=== PATIENT | male | born 1945 | race Caucasian/White ===

== ENCOUNTER 2020-01-01 10:19 | Outpatient (CLI) | payer MEDICARE, SELFPAY ==
--- NOTE | ~2020-01-01 | XR_ITS ---
EXAMINATION: XR wrist LT min 3V DATE: 01/01/2020 10:49 INDICATION: Left wrist pain. TECHNIQUE: 4 views of left wrist were obtained. COMPARISON: None. FINDINGS: Bone alignment is normal. No fracture. Joint spaces are well maintained. IMPRESSION: 1. Normal left wrist. Reviewed, dictated and finalized at location A. IMPRESSION: 1. Normal left wrist.
[2020-01-01 10:32] LABS: Hematocrit 46.9 % (37.0-46.0); Hemoglobin 16.3 g/dL (12.4-15.3); Mean Corpuscular HGB Conc 34.8 g/dL (32.0-36.0); Mean Corpuscular Hemoglobin 32.3 pg (27.0-31.0); Mean Corpuscular Volume 92.9 fL (78.0-102.0); Platelet Count Result 290 K/mm3 (150-420); Red Blood Count 5.05 M/mm3 (4.70-6.10); Red Cell Distribution Width 12.7 % (11.6-14.4); White Blood Count 11.8 K/mm3 (4.8-10.8)
[2020-01-01 11:02] LABS: Alanine Aminotransferase 36 U/L (16-63); Alkaline Phosphatase 68 U/L (46-116); Anion Gap 10.5 mmol/L (7-16); Aspartate Amino Transferase 25 U/L (15-37); Bilirubin,Total 0.3 mg/dL (0.00-1.00); Blood Urea Nitrogen 25 mg/dL (7-18); Calcium 9.2 mg/dL (8.5-10.1); Carbon Dioxide 30 mmol/L (21-32); Chloride 102 mmol/L (98-108); Cholesterol 212 mg/dL (0-200); Estimated Glomerular Filt Rate > 60; Glucose 93 mg/dL (70-99); HDL Direct 55 mg/dL (40-60); LDL Cholesterol Calculated 117 mg/dL (<130); Osmolality Calculated 290 mOsm/kg (285-295); Potassium 4.5 mmol/L (3.5-5.1); Sodium 138 mmol/L (136-145); Triglycerides 200 mg/dL (0-150)
== END 2020-01-01 10:20 | disposition home or self-care (01) ==
PROVIDERS: PCP Family Medicine; Visit Provider Family Medicine
DX: I10 Essential (primary) hypertension (principal); I25.10 Atherosclerotic heart disease of native coronary artery without angina pectoris; M25.539 Pain in unspecified wrist
CPT/HCPCS: 36415; 73110; 80053; 80061; 85027

== ENCOUNTER 2020-12-06 08:43 | Outpatient (CLI) | payer MEDICARE, SELFPAY ==
[2020-12-06 09:01] LABS: Hematocrit 45.4 % (37.0-46.0); Hemoglobin 15.1 g/dL (12.4-15.3); Mean Corpuscular HGB Conc 33.3 g/dL (32.0-36.0); Mean Corpuscular Volume 93.2 fL (78.0-102.0); Mean Platelet Volume 9.8 fl (8.7-11.0); Platelet Count Result 305 K/mm3 (150-420); Red Blood Count 4.87 M/mm3 (4.70-6.10); Red Cell Distribution Width 12.6 % (11.6-14.4); White Blood Count 11.9 K/mm3 (4.8-10.8)
[2020-12-06 09:59] LABS: Alanine Aminotransferase 36 U/L (16-63); Alkaline Phosphatase 81 U/L (46-116); Anion Gap 8 mmol/L (8-16); Aspartate Amino Transferase 25 U/L (15-37); Bilirubin,Total 0.4 mg/dL (0.00-1.00); Blood Urea Nitrogen 21 mg/dL (7-18); Calcium 9.1 mg/dL (8.5-10.1); Carbon Dioxide 28 mmol/L (21-32); Chloride 103 mmol/L (98-108); Cholesterol 157 mg/dL (0-200); Estimated Glomerular Filt Rate > 60; Glucose 84 mg/dL (70-99); HDL Direct 53 mg/dL (40-60); LDL Cholesterol Calculated 87 mg/dL (<130); Osmolality Calculated 290 mOsm/kg (285-295); Potassium 4.6 mmol/L (3.5-5.1); Sodium 139 mmol/L (136-145); Total Protein 7.1 g/dL (6.4-8.2); Triglycerides 85 mg/dL (0-150)
== END 2020-12-06 08:44 | disposition home or self-care (01) ==
PROVIDERS: PCP Family Medicine; Visit Provider Family Medicine
DX: I25.10 Atherosclerotic heart disease of native coronary artery without angina pectoris (principal); Z87.891 Personal history of nicotine dependence; J44.9 Chronic obstructive pulmonary disease, unspecified
CPT/HCPCS: 36415; 80053; 80061; 85027

== ENCOUNTER 2020-12-12 07:43 | Outpatient (CLI) | payer MEDICARE, SELFPAY ==
--- NOTE | ~2020-12-12 | CT_ITS ---
EXAMINATION: CT lung screening DATE: 12/12/2020 08:12 INDICATION: Personal history of tobacco dependence. TECHNIQUE: Computed tomography (CT) of the chest was performed without intravenous contrast. Automate d exposure control and iterative reconstruction technique were employed. The dose-length product was 208.47 mGy-cm. COMPARISON: Chest CT 04/23/2006 FINDINGS: Emphysema is noted. There is mild atelectasis bilaterally. A calcified left lung nodule and calcified left hilar lymph nodes are consistent with old granulomatous disease. There is a cluster o f nodules in left upper lobe measuring up to 7 mm, new from 04/23/2006. There is a 5 mm nodule in righ t upper lobe, new from 04/23/2006. There is a cluster of nodules in lingula measuring up to 6 mm, new from 04/23/2006. No pleural effusion. The heart size is normal. No pericardial effusion. There are cor onary artery calcifications. The central pulmonary arteries are enlarged, consistent with pulmonary a rterial hypertension. Calcifications in the liver and spleen are consistent with old granulomatous di sease. There is mild thoracic spondylosis. IMPRESSION: 1. Lung-RADS category 3: Probably benign. Further evaluation is recommended with noncontrast low-dose chest CT in 6 months. Reviewed, dictated and finalized at location A. IMPRESSION: 1. Lung-RADS category 3: Probably benign. Further evaluation is recommended wit h noncontrast low-dose chest CT in 6 months.
== END 2020-12-12 07:44 | disposition home or self-care (01) ==
LOC: CHSIMG 07:44
PROVIDERS: PCP Family Medicine; Visit Provider Family Medicine
DX: Z12.2 Encounter for screening for malignant neoplasm of respiratory organs (principal); Z87.891 Personal history of nicotine dependence
CPT/HCPCS: 71271

== ENCOUNTER 2021-04-01 15:20 | Outpatient (CLI) | payer MEDICARE, SELFPAY | END 2021-04-01 15:21 | disposition home or self-care (01) | LOC: CHSLAB 15:22 | PROVIDERS: PCP Family Medicine; Visit Provider Specialist | DX: C44.311 Basal cell carcinoma of skin of nose (principal) | CPT/HCPCS: 88305 ==

== ENCOUNTER 2021-07-01 11:54 | Outpatient (CLI) | payer MEDICARE, SELFPAY ==
--- NOTE | ~2021-07-01 | CT_ITS ---
EXAMINATION:CT lung screening DATE: 07/01/2021 12:10 INDICATION: Personal history of nicotine dependence. 20 pack year history. Lung nodule. TECHNIQUE: Computed tomography (CT) of the chest was performed without intravenous contrast. Automate d exposure control and iterative reconstruction technique were employed. The dose-length product (DLP ) was 180.24 mGy-cm. COMPARISON: Chest CT 12/12/2020 FINDINGS: There is moderate emphysema. There is mild atelectasis bilaterally. There is a 5 mm nodule in right upper lobe without change. The nodules in left upper lobe have resolved. A calcified left laura ng nodule and calcified left hilar lymph nodes are consistent with old granulomatous disease. No pleu ral effusion. The heart size is normal. No pericardial effusion. There is mild thoracic spondylosis. IMPRESSION: 1. Lung-RADS category 2: Benign appearance or behavior. Reviewed, dictated and finalized at location A. [employer]
== END 2021-07-01 11:55 | disposition home or self-care (01) ==
LOC: CHSIMG 11:56
PROVIDERS: PCP Family Medicine; Visit Provider Family Medicine
DX: Z12.2 Encounter for screening for malignant neoplasm of respiratory organs (principal); Z87.891 Personal history of nicotine dependence; R91.1 Solitary pulmonary nodule
CPT/HCPCS: 71271

== ENCOUNTER 2021-12-09 11:26 | Outpatient (CLI) | payer MEDICARE, SELFPAY ==
[2021-12-09 11:42] LABS: Hematocrit 49.1 % (37.0-46.0); Hemoglobin 16.4 g/dL (12.4-15.3); Mean Corpuscular HGB Conc 33.4 g/dL (32.0-36.0); Mean Corpuscular Hemoglobin 31.4 pg (27.0-31.0); Mean Corpuscular Volume 93.9 fL (78.0-102.0); Platelet Count Result 267 K/mm3 (150-420); Red Blood Count 5.23 M/mm3 (4.70-6.10); Red Cell Distribution Width 12.9 % (11.6-14.4); White Blood Count 12.5 K/mm3 (4.8-10.8)
[2021-12-09 12:03] LABS: Alanine Aminotransferase 36 U/L (16-63); Albumin Level 4.2 g/dL (3.4-5.0); Alkaline Phosphatase 63 U/L (46-116); Anion Gap 8 mmol/L (8-16); Aspartate Amino Transferase 24 U/L (15-37); Bilirubin,Total 0.4 mg/dL (0.00-1.00); Blood Urea Nitrogen 21 mg/dL (7-18); Calcium 9.5 mg/dL (8.5-10.1); Carbon Dioxide 27 mmol/L (21-32); Chloride 101 mmol/L (98-108); Cholesterol 177 mg/dL (0-200); Estimated Glomerular Filt Rate > 60; Glucose 94 mg/dL (70-99); HDL Direct 53 mg/dL (40-60); LDL Cholesterol Calculated 97 mg/dL (<130); Osmolality Calculated 285 mOsm/kg (285-295); Potassium 4.2 mmol/L (3.5-5.1); Sodium 136 mmol/L (136-145); Total Protein 7.8 g/dL (6.4-8.2); Triglycerides 136 mg/dL (0-150)
== END 2021-12-09 11:27 | disposition home or self-care (01) ==
PROVIDERS: PCP Family Medicine; Visit Provider Family Medicine
DX: I25.10 Atherosclerotic heart disease of native coronary artery without angina pectoris (principal)
CPT/HCPCS: 36415; 80053; 80061; 85027